=== PATIENT | male | born 1940 ===

== ENCOUNTER 2022-06-11 06:39 | Inpatient (IN) ==
[~2022-06-11 06:39] MED LIST: Buffered Lidocaine 1% SYRIN 1 ml INTRADERM ONE; Lactated Ringers 1000 ml BAG 1,000 ML IV SCH
[2022-06-11] MEDS ORDERED: ceFAZolin 2 GM PREMIX 2 GM/50 ML BAG ONE (07:05)
[2022-06-11] MEDS ORDERED: Lidocaine 2% PF 5 ML VIAL ONE ×3 (07:42→10:08)
[2022-06-11] MEDS ORDERED: Propofol 10 MG/ML 20 ML BTL ONE (07:59)
[2022-06-11] MEDS ORDERED: Rocuronium 50 mg VIAL 10 mg/ml 5 ml VIAL (50 mg) ONE ×2 (07:59→09:57)
[2022-06-11] MEDS ORDERED: fentaNYL 250 mcg/5 ml 50 MCG/ML 5 ml VIAL (250 MCG) ONE (08:13)
[2022-06-11] MEDS ORDERED: fentaNYL 100 mcg/2 ml 50 MCG/ML VIAL ONE ×3 (08:13→14:28)
[2022-06-11] MEDS ORDERED: Ondansetron 4 mg VIAL 2 MG/ML 2 ml VIAL IV PRN (08:25)
[2022-06-11] MEDS ORDERED: HYDROmorphone 1 MG/1 ML SYRINGE IV PRN (08:25)
[2022-06-11] MEDS ORDERED: Acetaminophen IV 1 GM/100ML 1,000 MG/100 ML BAG IV PRN (08:25)
[2022-06-11] MEDS ORDERED: Naloxone 0.4 mg VIAL 0.4 mg/ml 1 ml VIAL IV PRN (08:25)
[2022-06-11] MEDS ORDERED: fentaNYL 100 mcg/2 ml 50 MCG/ML VIAL IV PRN (08:25)
[2022-06-11] MEDS ORDERED: Phenylephrine 40 mcg/mL 10mL (400mcg) SYRINGE ONE ×2 (09:35→12:58)
[2022-06-11] MEDS ORDERED: Phenylephrine IV 10 MG/ML 1 ml VIAL ONE (09:41)
[2022-06-11] MEDS ORDERED: Sevoflurane BOTTLE ONE (09:52)
[2022-06-11] MEDS ORDERED: Dexamethasone IV 4 MG/ML VIAL 1 ml VIAL ONE (10:01)
[2022-06-11] MEDS ORDERED: Ondansetron 4 mg VIAL 2 MG/ML 2 ml VIAL ONE ×2 (10:01→14:28)
[2022-06-11] MEDS ORDERED: Morphine 2 MG/ML SYRINGE IV PRN (10:12)
[2022-06-11] MEDS ORDERED: Lactulose 30 ml UDC PO PRN (10:12)
[2022-06-11] MEDS ORDERED: Ondansetron ODT 4 mg TAB 4 MG TAB PO PRN (10:12)
[2022-06-11] MEDS ORDERED: Magnesium Hydroxide LIQ 30 ML UDC PO PRN (10:12)
[2022-06-11] MEDS ORDERED: Ropivacaine 0.2% 2 MG/ML VIAL ONE (10:43)
[2022-06-11] MEDS ORDERED: Labetalol IV 5 MG/ML 20 ml VIAL ONE (10:47)
[2022-06-11] MEDS ORDERED: Esmolol 10 MG/ML 10 ML (100 mg) ONE (10:48)
[2022-06-11] MEDS ORDERED: Bupivacaine 0.5% SDV PF 30ML VIAL ONE (11:52)
[2022-06-11] MEDS ORDERED: Acetaminophen IV 1 GM/100ML 1,000 MG/100 ML BAG IV ONE (14:28)
[2022-06-11] MEDS: Lactated Ringers 1000 ml BAG 1,000 ML IV SCH ×2 (16:38→17:57)
[2022-06-11] MEDS ORDERED: Naloxone 0.4 mg VIAL 0.4 mg/ml 1 ml VIAL IV PUSH ONE ×3 (16:53→17:03)
[2022-06-11] MEDS ORDERED: Naloxone 0.4 mg VIAL 0.4 mg/ml 1 ml VIAL ONE (16:53)
[2022-06-11] MEDS ORDERED: Lactated Ringers 1000 ml BAG 1,000 ML IV ONE (17:03)
[2022-06-11] MEDS: ceFAZolin 1 GM ADVAN 1 GM in NS 0.9% 50 ML 50 ML IVPB SCH (18:42)
[2022-06-11 18:57] LABS: Hematocrit 33 % (42-52); Hemoglobin 10.7 g/dL (14.0-18.0)
[2022-06-11] MEDS: Scopolamine 1 mg/72hr PATCH TRANSDERM SCH (20:20)
[2022-06-11] MEDS: Acetaminophen IV 1 GM/100ML 1,000 MG/100 ML BAG IV SCH (20:20)
[2022-06-11] MEDS: Magnesium Hydroxide LIQ 30 ML UDC PO SCH (20:21)
[2022-06-12] MEDS: Acetaminophen IV 1 GM/100ML 1,000 MG/100 ML BAG IV SCH (02:58)
[2022-06-12] MEDS: ceFAZolin 1 GM ADVAN 1 GM in NS 0.9% 50 ML 50 ML IVPB SCH ×2 (03:00→08:30)
[2022-06-12] MEDS: Lactated Ringers 1000 ml BAG 1,000 ML IV SCH (05:42)
[2022-06-12 06:50] LABS: Hematocrit 29 % (42-52); Hemoglobin 9.6 g/dL (14.0-18.0); Mean Platelet Volume 8.4 fL (7.4-10.4); Platelet Count 180 10^3/uL (150-450)
[2022-06-12 07:00] LABS: Calcium 7.8 mg/dL (8.6-10.3); Potassium 4.4 mmol/L (3.5-5.0); eGFR CKD-EPI 53.1 (>60)
[2022-06-12] MEDS: Aspirin EC 81 mg TAB.EC (enteric coated) PO SCH (08:26)
[2022-06-12] MEDS: Vitamin THERAPEUTIC TAB PO SCH (08:26)
[2022-06-12] MEDS: Magnesium Hydroxide LIQ 30 ML UDC PO SCH ×2 (08:26→21:19)
[2022-06-13 05:44] LABS: Hematocrit 28 % (42-52); Mean Platelet Volume 7.9 fL (7.4-10.4); Platelet Count 167 10^3/uL (150-450)
[2022-06-13] MEDS: Magnesium Hydroxide LIQ 30 ML UDC PO SCH ×2 (08:32→20:59)
[2022-06-13] MEDS: Vitamin THERAPEUTIC TAB PO SCH (08:32)
[2022-06-13] MEDS: Aspirin EC 81 mg TAB.EC (enteric coated) PO SCH (08:34)
[2022-06-13] MEDS ORDERED: Iodixanol (CONTRAST) 320 MG/ML 100 ML SDV IV ONE (09:40)
[2022-06-13] MEDS: Ondansetron 4 mg VIAL 2 MG/ML 2 ml VIAL IV PRN (18:07)
[2022-06-14] MEDS: Ondansetron 4 mg VIAL 2 MG/ML 2 ml VIAL IV PRN ×2 (02:43→10:45)
[2022-06-14 05:17] LABS: Hematocrit 31 % (42-52); Hemoglobin 10.3 g/dL (14.0-18.0); Mean Platelet Volume 8.1 fL (7.4-10.4); Platelet Count 204 10^3/uL (150-450)
[2022-06-14] MEDS ORDERED: Prochlorperazine 5 mg/ml 2 ml VIAL (10 mg) IV ONE (06:06)
[2022-06-14 06:35] LABS: ABS Lymphocytes 0.7 10^3/ul (1.0-4.8); ABS Monocytes 0.5 10^3/ul (0-0.8); ABS Neutrophils 11.5 10^3/ul (1.5-7.7); Albumin 3.3 g/dL (3.2-5.2); Calcium 8.4 mg/dL (8.6-10.3); Globulin 3.3 g/dL (2-4); Lymphocyte % 5.6 %; Mean Corpuscular HGB Conc 33 g/dL (31-36); Mean Corpuscular Hemoglobin 29 pg (27-31); Mean Corpuscular Volume 87 fL (80-94); Potassium 4.4 mmol/L (3.5-5.0); Red Blood Count 3.52 10^6 /uL (4.18-5.48); Red Cell Distribution Width 15 % (10-15); Total Bilirubin 0.6 mg/dL (0.2-1.0); Total Protein 6.6 g/dL (6.4-8.9); White Blood Count 12.7 10^3/uL (3.5-10.8); eGFR CKD-EPI 84.1 (>60)
[2022-06-14] MEDS ORDERED: Iohexol 350 (CONTRAST) 500 ML MDV IV ONE (08:52)
[2022-06-14] MEDS: Aspirin EC 81 mg TAB.EC (enteric coated) PO SCH (13:45)
[2022-06-14] MEDS: Magnesium Hydroxide LIQ 30 ML UDC PO SCH ×2 (13:46→20:47)
[2022-06-14] MEDS: Vitamin THERAPEUTIC TAB PO SCH (13:46)
[2022-06-14] MEDS ORDERED: Methylnaltrexone SQ (NF) 12 MG/0.6 ML VIAL SUBCUT ONE (15:00)
[2022-06-14] MEDS: Lactated Ringers 1000 ml BAG 1,000 ML IV SCH (16:46)
[2022-06-14] MEDS: Scopolamine 1 mg/72hr PATCH TRANSDERM SCH (20:48)
[2022-06-15] MEDS: Lactated Ringers 1000 ml BAG 1,000 ML IV SCH (04:32)
[2022-06-15 05:15] LABS: Hematocrit 29 % (42-52); Hemoglobin 9.9 g/dL (14.0-18.0); Platelet Count 225 10^3/uL (150-450)
[2022-06-15 05:47] LABS: Potassium 4.2 mmol/L (3.5-5.0)
[2022-06-15] MEDS: Ondansetron 4 mg VIAL 2 MG/ML 2 ml VIAL IV PRN (08:15)
[2022-06-15] MEDS: Vitamin THERAPEUTIC TAB PO SCH (10:22)
[2022-06-15] MEDS: Aspirin EC 81 mg TAB.EC (enteric coated) PO SCH (10:24)
[2022-06-15] MEDS: Magnesium Hydroxide LIQ 30 ML UDC PO SCH ×2 (10:26→20:24)
[2022-06-16 04:59] LABS: Hematocrit 27 % (42-52); Hemoglobin 8.9 g/dL (14.0-18.0); Mean Platelet Volume 7.7 fL (7.4-10.4); Platelet Count 243 10^3/uL (150-450)
[2022-06-16] MEDS: Magnesium Hydroxide LIQ 30 ML UDC PO SCH ×3 (08:25→21:22)
[2022-06-16] MEDS: Vitamin THERAPEUTIC TAB PO SCH (08:26)
[2022-06-16] MEDS: Aspirin EC 81 mg TAB.EC (enteric coated) PO SCH (08:26)
[2022-06-16] MEDS: Ondansetron 4 mg VIAL 2 MG/ML 2 ml VIAL IV PRN (12:11)
[2022-06-17] MEDS: Ondansetron 4 mg VIAL 2 MG/ML 2 ml VIAL IV PRN (09:12)
[2022-06-17] MEDS: Magnesium Hydroxide LIQ 30 ML UDC PO SCH (09:15)
[2022-06-17] MEDS: Aspirin EC 81 mg TAB.EC (enteric coated) PO SCH (09:15)
[2022-06-17] MEDS: Vitamin THERAPEUTIC TAB PO SCH (09:16)
[2022-06-17 15:27] VITALS: BP 124/59
== END 2022-06-17 16:45 | disposition home or self-care (01) | DRG 470 ==
LOC: INTOOBSV 06:39 → AA 06:39 → SSU 10:12
PROVIDERS: ADMIT Orthopaedic Surgery Adult Reconstructive Orthopaedic Surgery; ATTEND Orthopaedic Surgery Adult Reconstructive Orthopaedic Surgery